=== PATIENT | male | born 1985 | race American Indian/Alaskan Native ===

== ENCOUNTER 2017-09-11 20:34 | Emergency (ER) | payer SELFPAY ==
[2017-09-11 20:43] VITALS: BMI 28.6
[2017-09-11 20:45] VITALS: TEMP 98.6
[2017-09-11] MEDS ORDERED: Albuterol-Ipratrop 3 mg / 0.5 (3 ml) UD IH STA (20:55)
--- NOTE | 2017-09-11 21:43 | ED PDOC ---
Arrival/HPI - General Chief Complaint: Shortness Of Breath Time Seen by Provider: 09/11/17 20:42 Historian: Patient - History of Present Illness Narrative History of Present Illness (Text): 09/11/17 20:55 Taiwo Coyne is a 31 year old male, whose past medical history includes asthma and seasonal allergies, who presents to the ED complaining of wheezing. Patient states he has been experiencing wheezing, consistent with his usual asthma symptoms, and nasal congestion. Patient notes his seasonal allergies have been acting up. Patient denies any fever, chills, chest pain, cough, abdominal pain, back pain, headache, dizziness, or any other complaints. Symptom Onset: Gradual Symptom Course: Unchanged Activities at Onset: Light Context: Home Past Medical History - Provider Review Nursing Documentation Reviewed: Yes - Infectious Disease Hx of Infectious Diseases: None - Pulmonary Hx Asthma: Yes - Psychiatric Hx Depression: No Hx Emotional Abuse: No Hx Physical Abuse: No Hx Substance Use: No - Past Surgical History Past Surgical History: No Previous - Anesthesia Hx Anesthesia: No - Suicidal Assessment Feels Threatened In Home Enviroment: No Family/Social History - Physician Review Nursing Documentation Reviewed: Yes Family/Social History: Unknown Family HX Smoking Status: Never Smoked Hx Alcohol Use: Yes Frequency of alcohol use: Socially Hx Substance Use: No Allergies/Home Meds Allergies/Adverse Reactions: Allergies No Known Allergies Allergy (Verified 06/01/12 11:28) Home Medications: Home Meds Medication Instructions Recorded Confirmed Fexofenadine/Pseudoephedrine 1 tab PO DAILY 09/11/17 09/11/17 [Oksana-D 12 Hour Tablet] Review of Systems - Physician Review All systems were reviewed & negative as marked: Yes - Review of Systems Constitutional: Normal. absent: Fevers Eyes: Normal ENT: Sinus Congestion Respiratory: Wheezing Cardiovascular: Normal. absent: Chest Pain Gastrointestinal: Normal. absent: Abdominal Pain, Diarrhea, Nausea, Vomiting Genitourinary Male: Normal. absent: Dysuria, Frequency, Hematuria, Urinary Output Changes Musculoskeletal: Normal. absent: Back Pain, Neck Pain Skin: Normal. absent: Rash Neurological: Normal. absent: Headache, Dizziness Endocrine: Normal Hemo/Lymphatic: Normal Psychiatric: Normal Physical Exam Vital Signs Reviewed: Yes Vital Signs Temp Pulse Resp BP Pulse Ox 09/11/17 23:00 88 18 147/80 100 09/11/17 20:50 14 09/11/17 20:44 98.6 F 96 H 18 146/76 98 Temperature: Afebrile Blood Pressure: Normal Pulse: Regular Respiratory Rate: Normal Appearance: Positive for: Well-Appearing, Non-Toxic, Comfortable Pain Distress: None Mental Status: Positive for: Alert and Oriented X 3 - Systems Exam Head: Present: Atraumatic, Normocephalic Pupils: Present: PERRL Extroacular Muscles: Present: EOMI Conjunctiva: Present: Normal Mouth: Present: Moist Mucous Membranes Neck: Present: Normal Range of Motion Respiratory/Chest: Present: Wheezes (Slight wheeze). No: Respiratory Distress, Accessory Muscle Use Cardiovascular: Present: Regular Rate and Rhythm, Normal S1, S2. No: Murmurs Abdomen: No: Tenderness, Distention, Peritoneal Signs Back: Present: Normal Inspection Upper Extremity: Present: Normal Inspection. No: Cyanosis, Edema Lower Extremity: Present: Normal Inspection. No: Edema Neurological: Present: GCS=15, CN II-XII Intact, Speech Normal Skin: Present: Warm, Dry, Normal Color. No: Rashes Psychiatric: Present: Alert, Oriented x 3, Normal Insight, Normal Concentration Medical Decision Making ED Course and Treatment: 09/11/17 20:55 Impression: 31 year old male c/o wheezing, nasal congestion, and seasonal allergies. Plan: -- Duoneb -- Reassess and disposition Progress Notes: 09/11/17 22:45 On re-evaluation, patient feels better and is in no acute distress. I have discussed the results and plan with the patient, who expresses understanding. Patient in agreement with plan to be discharged home. Patient is stable for discharge. Patient was instructed to follow up with physician or return if symptoms worsen or new concerning symptoms arise. - Medication Orders Current Medication Orders: Discontinued Medications Albuterol/Ipratropium (Duoneb 3 Mg/0.5 Mg (3 Ml) Ud) 3 ml IH STAT STA Stop: 09/11/17 20:56 Last Admin: 09/11/17 20:56 Dose: 3 ml - Scribe Statement The provider has reviewed the documentation as recorded by the Scribe Arlene Vallejo All medical record entries made by the Scribe were at my direction and personally dictated by me. I have reviewed the chart and agree that the record accurately reflects my personal performance of the history, physical exam, medical decision making, and the department course for this patient. I have also personally directed, reviewed, and agree with the discharge instructions and disposition. Disposition/Present on Arrival - Present on Arrival Any Indicators Present on Arrival: No History of DVT/PE: No History of Uncontrolled Diabetes: No Urinary Catheter: No History of Decub. Ulcer: No History Surgical Site Infection Following: None - Disposition Have Diagnosis and Disposition been Completed?: Yes Diagnosis: Asthma Disposition: HOME/ ROUTINE Disposition Time: 22:45 Condition: GOOD Discharge Instructions (ExitCare): Asthma in Adults Prescriptions: Fluticasone Nasal [Flonase] 1 actuation NS DAILY #1 spr Albuterol HFA [Ventolin HFA] 1 puff IH QID #1 puff [place] [facility] [place] [facility] [place] - Follow up with primary PCP,NO [Primary Care Provider] - Follow up with primary Forms: [employer] ([employer])
[2017-09-12 00:02] VITALS: BP 147/80; PULSE 88; RESP 18; O2SAT 100
== END 2017-09-11 23:00 | disposition home or self-care (01) ==
LOC: ED 20:34
DX: J45.909 Unspecified asthma, uncomplicated (principal)